=== PATIENT | female | born 1980 | race Caucasian/White ===

== ENCOUNTER 2024-08-24 13:47 | Emergency (ER) | payer BC ==
[~2024-08-24] VITALS: Ht 165.1 cm; Wt 60.5 kg
--- OUTSIDE RECORDS SUMMARY | 2024-08-24 13:54 | XMS ---
PreManage Notification: ESTHER CHING Security Conversion Developer Events No recent Security Events currently on file CRITERIA MET - [facility] - 2 Visits in 30 Days CARE PROVIDERS Paty Perkins Nurse Practitioner: Family Current PHONE: Unknown Nguyễn has no Care Guidelines for this patient. Ranjeet VISIT COUNT (12 MO.) [address] [place] [address] TOTAL 2 NOTE: Visits indicate total known visits. ED/UCC VISIT TRACKING (12 MO.) 08/24/2024 13:[address] [facility] OR TYPE: Emergency COMPLAINT: - ABDOMINAL PAIN 08/20/2024 20:03 [facility] OR TYPE: Emergency DIAGNOSES: - Epigastric pain - abd pain back pain INPATIENT VISIT TRACKING (12 MO.) No inpatient visits to display in this time frame [email or web address]
[2024-08-24 14:21] LABS: BILIRUBIN, URINE NEGATIVE (negative); BLOOD/HGB, URINE SMALL (Negative); KETONE, URINE NEGATIVE (Negative); LEUK ESTERASE, URINE NEGATIVE (negative); NITRITE, URINE NEGATIVE (negative)
[2024-08-24 14:27] LABS: BACTERIA, URINE NONE SEEN /hpf (negative); CASTS, URINE NONE SEEN \\lpf; COLLECTION TYPE, URINE CLEAN CATCH; CRYSTALS, URINE NONE SEEN (0-1+); EPITHELIAL CELLS, URINE NONE SEEN /lpf (0-1+); RED BLOOD CELLS, URINE 0-1 /hpf (0-5); REFLEX CULTURE, URINE No (No); WHITE BLOOD CELLS, URINE 0-1 /HPF (0-5)
[2024-08-24] MEDS ORDERED: VENTOLIN HFA18 GM INH (15:02)
[2024-08-24] MEDS ORDERED: ALLEGRA ALLERGY60 MG PO (15:02)
[2024-08-24] MEDS ORDERED: ondansetron HCL 4 MG/2 ML VIAL IV ONE (15:15)
[2024-08-24] MEDS ORDERED: LIDOCAINE & ANTACID 35 ML BTL PO ONE (15:30)
[2024-08-24 16:51] VITALS: BP 114/74
[2024-08-24] MEDS ORDERED: LIDOCAINE HCL100 ML MT (17:02)
== END 2024-08-24 17:14 | disposition home or self-care (01) ==
LOC: ED 13:47
PROVIDERS: Emergency Medicine
DX: R10.11 Right upper quadrant pain (principal); G43.909 Migraine, unspecified, not intractable, without status migrainosus; J45.909 Unspecified asthma, uncomplicated; Z88.8 Allergy status to other drugs, medicaments and biological substances; Z79.899 Other long term (current) drug therapy
CPT/HCPCS: 76705; 80053; 81001; 83690; 84703; 85025; 99284-25

== ENCOUNTER 2025-04-27 05:52 | Day surgery (SDC) | payer BC ==
[2025-04-19 15:37] VITALS: BP 129/87
[~2025-04-27] VITALS: Ht 167.6 cm; Wt 63.6 kg
--- NOTE | ~2025-04-27 | OR ---
[facility] [address], [place] [address] Draft DATE OF OPERATION: 04/27/2025 SURGEON: Da Marin DO PREOPERATIVE DIAGNOSES: 1. Abnormal uterine bleeding. 2. Asherman syndrome. 3. Labial defect. POSTOPERATIVE DIAGNOSES: 1. Abnormal uterine bleeding. 2. Asherman syndrome. 3. Labial defect. PROCEDURES PERFORMED: 1. Total laparoscopic hysterectomy. 2. Bilateral salpingectomy. 3. Cystoscopy. 4. Revision of labial defect. ESTIMATED BLOOD LOSS: 50 mL. COMPLICATIONS: None. DRAINS: Pacheco to gravity. SPECIMENS: Uterus, portion of bilateral fallopian tubes and cervix. COMPLICATIONS: None. INDICATIONS: Ms. Ching is a very pleasant 45-year-old G4, P3 female, who presents for total laparoscopic hysterectomy, bilateral salpingectomy, cystoscopy, and revision of labial defect. Briefly, patient with a history of worsening abnormal uterine bleeding. Hysteroscopy for malpositioned embedded IUD demonstrated Asherman syndrome with uterine PATIENT NAME: ESTHER CHING OPERATIVE REPORT DATE OF : [birth year] REPORT #: [id number] PHYSICIAN: DA MARIN (MYA) PCP: NO PRIMARY CARE PHYSICIAN REPORT IS CONFIDENTIAL AND NOT TO BE RELEASED WITHOUT AUTHORIZATION [facility] [address] [place], [place] [address] Draft synechiae. She desired definitive treatment with hysterectomy. Of note, patient also had a right labial defect. This was approximately 3 to 4 cm across the diameter in the right labia minora from a failed obstetric pair in the distant past. This created significant pain particularly with intimacy. The patient desired revision. Risks, benefits, and alternatives were discussed in detail with the patient. The patient understands and wished to proceed with the procedure. DESCRIPTION OF PROCEDURE: The patient was taken the OR. Time-out was performed to confirm correct patient and correct procedure. General anesthesia was adequately established. The patient was prepped and draped in the dorsal lithotomy position with feet in Yellofin stirrups. ICPs were on and running. The patient received Ancef 2 g preoperatively and no heparin was indicated. A Pacheco catheter was inserted. Weighted speculum was placed in the vagina and the anterior lip of the cervix was grasped with an Allis clamp. The cervix was gently dilated using Hegar dilators to a #7. A VCare uterine manipulator was very carefully placed to the fundus without difficulty while being mindful of patient's previously seen Asherman syndrome on hysteroscopy. Once appropriate placement was appreciated, the surgeon's gloves were changed. Attention was turned to the abdomen. Just inferior to the umbilicus, the skin was infiltrated with 0.25% Marcaine with epinephrine and incision was made. Incision was carried down to the fascia. The fascia was nicked with Metzenbaum scissors and fascial incision was extended bilaterally with Metzenbaum scissors. Stay sutures were placed in the superior and inferior edge of the fascial incision. The peritoneum was entered bluntly and no adhesions were palpable. A Betty operative port was placed without difficulty and pneumoperitoneum was established without difficulty. Survey of the abdomen and pelvis was performed demonstrating normal uterus, ovaries, history of partial bilateral salpingectomy/fimbriectomy. Normal liver and gallbladder. A 5 mm assist port was placed in the left lower quadrant under direct visualization. An 8 mm expanding port was placed in the right lower quadrant under direct visualization without complication. Attention was turned to the hysterectomy. The remaining portion of left fallopian tube was grasped with a blunt grasper and the fallopian tube was divided along the mesosalpinx and amputated at the cornu with the LigaSure device. Portion of the tube was sent to Pathology for further evaluation. The process was repeated on the right without difficulty. Attention was turned to the left side where the utero-ovarian ligament was identified, fulgurated and divided with excellent hemostasis with the LigaSure device. The round ligament was fulgurated and divided with excellent hemostasis as well. The leaves of the broad ligament were divided with the anterior leaf divided from the midportion of the round to the edge of the vaginal cup anteriorly following the anterior edge of the vaginal cup. Some dense adhesions from prior were noted but bladder flap was able to be created without difficulty or complication. The posterior leaf of the broad ligament was divided from the midportion around to the uterosacral ligament across the posterior edge of the vaginal cup to the right uterosacral ligament. The left uterine vessels were PATIENT NAME: ESTHER CHING OPERATIVE REPORT DATE OF : [birth year] REPORT #: [id number] PHYSICIAN: DA MARIN (MYA) DO PCP: NO PRIMARY CARE PHYSICIAN REPORT IS CONFIDENTIAL AND NOT TO BE RELEASED WITHOUT AUTHORIZATION [facility] [address] [place] [id number] Draft identified, fulgurated and divided with the LigaSure device with excellent hemostasis appreciated. The process was repeated on the right with fulguration and division of the right utero-ovarian ligament, round ligament and leaves of the broad ligament. Again, some adhesions anteriorly were noted, but these were able to be brought down with the LigaSure device and the bladder was eventually to be mobilized well below the vaginal cup. After fulguration division of the uterine vessels on the right colpotomy was performed using Sonicision device with excellent hemostasis. The uterus and cervix were delivered through the vagina and sent to the Pathology for further evaluation. A wet lap sponge was placed in a glove, which was then placed into the vagina to maintain pneumoperitoneum. The colpotomy was irrigated and made hemostatic with judicious use of bipolar cautery. Colpotomy was then repaired using V-Loc suture with an Endostitch device with careful attention to incorporate the uterosacral ligaments bilaterally as well as to incorporate the vaginal epithelium with each bite. Excellent hemostasis and apical support was appreciated at the end of this. The pelvis was again irrigated and found to be hemostatic. Pneumoperitoneum was reduced. Trocars removed and infraumbilical fascia was reapproximated using 0 Vicryl in a running nonlocked manner. Stay sutures of 0 Vicryl were then plicated to reinforce this incision. Skin was reapproximated using 3-0 Vicryl Rapide. Attention was then turned to cystoscopy. The Pacheco catheter was removed and a 70-degree cystoscope was placed in the urethral meatus and advanced under direct visualization of the bladder. Normal bladder dome and bilateral ureteral jets was appreciated. The bladder was drained. Pacheco catheter was reinserted and attention was then turned to repair of the vaginal defect. The vulvar defect was cut to release the defect. The edges of the defect were then clamped with a Jelly clamp and the epithelialized edge of the defect was excised with a surgical scalpel. skin edges were identified and the anterior portion of the skin was then repaired using 3-0 Vicryl and interrupted sutures. The posterior edges of the defect were then brought together with 3-0 Vicryl. Excellent reapproximation with cosmesis and hemostasis appreciated. The patient was then taken to the PACU in good and stable condition. Sponge, needle, and instrument counts were correct x2 at the end of procedure. Da Marin DO JDW/MODL /[id number] PATIENT NAME: ESTHER CHING OPERATIVE REPORT DATE OF : 84 REPORT #: [id number] PHYSICIAN: DA MARINMYA) PCP: NO PRIMARY CARE PHYSICIAN REPORT IS CONFIDENTIAL AND NOT TO BE RELEASED WITHOUT AUTHORIZATION [facility] [address] [place] [address] [address] [place], [place] [address] Draft Copies: ~ PATIENT NAME: ESTHER CHING OPERATIVE REPORT DATE OF : 84 REPORT #: [id number] PHYSICIAN: DA MARIN (MYA) DO PCP: NO PRIMARY CARE PHYSICIAN REPORT IS CONFIDENTIAL AND NOT TO BE RELEASED WITHOUT AUTHORIZATION
[~2025-04-27 05:52] MED LIST: ALLEGRA ALLERGY60 MG PO; LACTATED RINGER'S 1,000 ML IV SCH; LIDOCAINE HCL100 ML MT; VENTOLIN HFA18 GM INH
[2025-04-27 06:11] VITALS: BP 124/76
[2025-04-27 06:57] VITALS: BP 120/76
[2025-04-27] MEDS ORDERED: fentaNYL citrate 100 MCG/2 ML VIAL ONE (06:59)
[2025-04-27] MEDS ORDERED: MIDAZOLAM HCL 2 MG/2 ML VIAL ONE (06:59)
[2025-04-27] MEDS ORDERED: LIDOCAINE HCL 1% 5 ML SDV INJ ONE (07:00)
[2025-04-27] MEDS ORDERED: VANCOMYCIN HCL 1 GM in DEXTROSE 5% 250 ML IV SCH (07:00)
[2025-04-27] MEDS ORDERED: GENTAMICIN SULFATE IV SCH (07:00)
[2025-04-27] MEDS ORDERED: IBLOOD GLUCOSE TEST STRIP 1 EA TEST VI PRN ×2 (07:00→10:30)
[2025-04-27] MEDS ORDERED: DEXTROSE 5% IV SCH (07:00)
[2025-04-27] MEDS ORDERED: KETOROLAC TROMETHAMINE 30 MG/ML VIAL ONE (07:01)
[2025-04-27] MEDS ORDERED: DEXAMETHASONE SOD PHOS 4 MG/ML VIAL ONE (07:01)
[2025-04-27] MEDS ORDERED: ROCURONIUM BROMIDE 50 MG/5 ML SYR ONE (07:02)
[2025-04-27] MEDS ORDERED: LIDOCAINE HCL 2% 5 ML SDV ONE (07:02)
[2025-04-27] MEDS ORDERED: LIDOCAINE HCL 1% 30 ML SDV ONE (07:02)
--- NOTE | 2025-04-27 07:14 | NUR ---
0650 PT USED CALL LIGHT TO ALERT RN THAT PT SCALP FEELS ITCHY. PT REPORTS THAT PRIOR ANTIBIOITCS CAUSED PT TO BECOME RED WITH NO OTHER SYMPTOMS. PT HAS NO REDNESS AT THIS TIME. PT STATES THAT ITCH IN SCALP IS GONE NOW. PT WILL ALERT RN IF ANY OTHER SYMPTOMS ARISE. INFUSION OF VANCO CONTINUES TO RUN PER EMAR. 0657 COLLECTION TECHNICIAN OSCAR COMES OUT OF PT ROOM AND INFORMS THIS RN THAT PT IS VERY RED ALL OVER. 0658 RN IN ROOM, PT IS RED AROUND NECK AND FACE, AND BACK. PT REPORTS NO SHORTNESS OF BREATH OR ANY OTHER SYMPTOMS. INFUSION STOPPED AT THIS TIME. 0704 PT REDNESS HAS STOPPED AT THIS TIME. INFUSION RESTARTED AT 125MLS AN HOUR. 0708 SPOKE WITH ABOUT REACTION AND COLLECTION TECHNICIAN. COLLECTION TECHNICIAN VERBAL ORDER FOR 25MG OF BENADRYL IV ONCE NOW TO BE GIVEN. VANCO INFUSION TO BE STOPPED, 128 MLS OF VANCO HAS BEEN INFUSED. GENT TO BE STARTED AT 0720 PER OSCAR COLLECTION TECHNICIAN. 25 MG OF BENEDRYL GIVEN IV NOW. SEE ANESTHSIA BLUE SHEET.
[2025-04-27] MEDS ORDERED: FLUORESCEIN SODIUM 500 MG/5 ML ML ONE (08:14)
[2025-04-27] MEDS ORDERED: SODIUM CHLORIDE 0.9% 20 ML IV ONE (08:14)
[2025-04-27] MEDS ORDERED: SUGAMMADEX SODIUM 200 MG/2 ML ML ONE (08:17)
[2025-04-27] MEDS ORDERED: BUPIVACAINE HCL 0.5% 30 ML VIAL ONE (08:25)
[2025-04-27] MEDS ORDERED: LACTATED RINGER'S 1,000 ML IV ONE (09:28)
[2025-04-27] MEDS ORDERED: ACETAMINOPHEN 1,000 MG/100 ML VIAL ONE (10:13)
--- NOTE | 2025-04-27 10:28 | NUR ---
04/27/25 Jie8 Tata Bell LE 1015: PT ARRIVES TO PACU. SHE IS NON REACTIVE TO STIMULI. LE 1026: LYNN MACHUCA HUNG BY KIT. ICE PACK IS PLACED ON LABIA PER DR. OTERO REQUEST/ORDERS.
[2025-04-27] MEDS ORDERED: OXYCODONE/APAP 5/325 TAB PO PRN (10:30)
[2025-04-27] MEDS ORDERED: NALOXONE HCL 0.4 MG SYR IV PRN ×2 (10:30)
[2025-04-27] MEDS ORDERED: FAMOTIDINE 20 MG/ 2 ML VIAL IV PRN (10:30)
[2025-04-27] MEDS ORDERED: PROCHLORPERAZINE EDISYLATE 10 MG/2 ML VIAL IV PRN (10:30)
[2025-04-27] MEDS ORDERED: fentaNYL citrate 50 MCG/ML SDV IV PRN (10:30)
[2025-04-27] MEDS ORDERED: SIMETHICONE 80 MG CHEW PO PRN (10:30)
[2025-04-27] MEDS ORDERED: METOCLOPRAMIDE HCL 10 MG/2 ML SDV IV PRN (10:30)
[2025-04-27] MEDS ORDERED: MORPHINE SULFATE 10 MG/ML VIAL IV PRN (10:30)
[2025-04-27] MEDS ORDERED: MAGNESIUM HYDROXIDE/AL HYDROX 30 ML CUP PO PRN (10:30)
[2025-04-27 10:58] VITALS: BP 128/73
--- NOTE | 2025-04-27 11:22 | NUR ---
1055 PT ARRIVED TO DAY SURGERY RM TX VIA STREACHER FROM PACU. REPORT TAKEN FROM WILEY Montiel RN. PT REPORTS NO NAUSEA AT THIS TIME. PT STATES THAT SHE FEELS LIKE SHE REALLY NEEDS TO PEE AND ITS CAUSING HER 9/10 PAIN. EDUCATED PT ABOUT CATHETER AND THAT PT CAN VOID AT ANY TIME. PT VOIDS AND A TOTAL OF 200 MLS OF YELLOW URINE IN OWEN CATH BAG. PT REPORTS NO RELEIF FROM PAIN. TELEGRAPH MECHANIC STATES TAHT CATHETER CAN BE REMOVED AT 11:15. PT HAS AT BEDSIDE. PT RESTING WITH EYES CLOSED, CALL LIGHT WITHIN REACH. 1100 HEATING PAD APPLIED TO PT BLADDER AREA WHERE PT STATES THE PAINFUL CRAMPING IS. 1115 OWEN CATH BALOON DEFLATED, 10CC OF WATER REMOVED FROM BALOON. OWEN CATH THEN REMOVED. GLADYS PAD IN PLACE. PT REPORTS NO DECREASE IN PAIN AT THIS TIME. DISCUSSION OF PAIN MEDICATION IF PAIN DOES NOT DECREASE SOON. JELLO AND WATER AT BEDSIDE.
--- NOTE | 2025-04-27 11:31 | NUR ---
1125 CHECKED IN WITH PT. PT STILL REPORTS 9/10 CRAMPING PAIN IN LOWER ABDOMEN. DISCUSSED THIS PAIN WITH PT IN REGARDS TO PROCEDURE. DISCUSSED PAIN MEDICINE AND A GAS RELEIF MEDICATION. PT UNDERSTANDING. PT WILL ATTEMPT TO EAT SOME JELLO AND DRINK SOME WATER BEFORE PAIN MEDCIATION GIVEN TO ASSSIT WITH AVOIDING NAUSEA.
--- NOTE | 2025-04-27 11:46 | NUR ---
1145 PAIN MEDICATION GIVEN PER EMAR. GAS RELEIF MEDICATION GIVEN PER EMAR. PT REPORTING 7/10 PAIN AT THIS TIME. DULL AND CRAMPING IN LOWER ABDOMEN.
[2025-04-27 11:48] VITALS: BP 130/83
--- NOTE | 2025-04-27 11:53 | NUR ---
1148 HOURLY ROUNDING DONE. PT REPORTING 7/10 DULL ACHING PAIN IN LOWER ABDOMEN. INCSION SITES CHECKED. PT REPORTS NO NAUSEA AT THIS TIME. PT HAS BEEN ABLE TO TOLERATE PO FLUIDS AND JELLO. PT AT BEDSIDE. PT HAS CALL LIGHT WITHIN REACH. BED LOW AND LOCKED. PT RESTING WITH EYES CLOSED IN BED. VITALS TAKEN.
[2025-04-27 12:48] VITALS: BP 126/81
--- NOTE | 2025-04-27 12:56 | NUR ---
1249 HOURLY ROUNDING DONE WITH PT. VITALS TAKEN. IV ASSESSED. PT SIPPING ON WATER. PT REPORTS TOELRABLE 4/10 PAIN AND NO NAUSEA AT THIS TIME. PT HAS CALL LIGHT WITHIN REACH. DISCUSSED PLAN TO GET PT UP TO PEE SOON PT REPORTS URGE TO URINATE BUT HAS HAD URGE SINCE CATHETER WAS IN. PT GOING TO DRINK CUP OF WATER AND THEN PT AND RN WILL GET PT UP TO BATHROOM TO ATTEMPT TO VOID.
[2025-04-27] MEDS ORDERED: SIMETHICONE 80 MG CHEW PO SCH (13:00)
--- NOTE | 2025-04-27 13:03 | NUR ---
1302 PT USED CALL LIGHT TO ALERT RN THAT PT NEEDS TO VOID. PT ABLE TO STAND AND AMBULATE TO BATHROOM WITH STEADY GAIT. PT IN BATHROOM ATTEMPTING TO VOID. PT IN ROOM AT BEDSIDE. 1305 PT ABLE TO VOID 400 MLS OF OSCAR URINE. PT ABLE TO AMBULATE BACK TO BED WITH STEADY GAIT.
--- NOTE | 2025-04-27 13:32 | NUR ---
1310 DISCHARGE INFORMATION GONE OVER WITH PT AND . NO QUESTIONS AT THIST ENOC. BACITRACIN GIVEN TO PT PER DR WARDS VERBAL ORDERS FOR PT TO PLACE ON LABIAL REPAIR TO KEEP MOIST TO NOT LET IT ADHEAR TO GLADYS PAD. 1315 IV REMOVED FOR DISCHARGE. PT GETTING DRESSED WITH PT HUSBANDS ASSISTANCE. 1325 PT DISCHARGED FROM DAY SURGERY VIA WHEELCHAIR TO THE FRONT OF THE HOSPITAL TO PT'S 'S CAR. PT SPOUSE HAS DISCHARGE INFORMATION IN HAND.
[2025-04-27] MEDS ORDERED: SEVOFLURANE 250 ML BTL INH ONE (14:57)
--- NOTE | 2025-04-29 15:31 | PATH ---
[facility] [address] [place], [place] [address] Signed SPECIMEN(S): A UTERUS, CERVIX, PARTIAL PIECES OF TUBES SPECIMEN SOURCE: A. UTERUS, CERVIX, PARTIAL PIECES OF TUBES CLINICAL HISTORY: AUB; Asherman syndrome; labial defect. FINAL PATHOLOGIC DIAGNOSIS: A. Uterus cervix and bilateral fallopian tubes, hysterectomy and bilateral salpingectomy: - Cervix: - Benign squamous epithelium and endocervix, negative for dysplasia. - Endomyometrium: - Adenomyosis. - Fragments of benign secretory type endometrium, negative for atypia. - Bilateral fallopian tubes: - Benign fimbriae and cross sections of fallopian tubes with hydrosalpinx. DDF MICROSCOPIC EXAMINATION: Histologic sections of all submitted blocks are examined by light microscopy. These findings, together with the gross examination, support the pathologic diagnosis. GROSS DESCRIPTION: The specimen, labeled and designated "Luiz Dexter, " and designated on the requisition "cervix; uterus, right and left partial pieces of fallopian tube," is received in formalin and consists of 175 gram uterus and cervix with segments of fallopian tube. The uterus is 5.5 x 5.1 x 10.6 violaceous and smooth with areas of red punctate discoloration. The serosal surface is violaceous and smooth with one area of red discoloration that is 2.5 cm in greatest dimension. The ectocervical mucosa is violaceous and smooth. Serial sectioning of the cervix fails to demonstrate any gross abnormalities. The triangular endometrial cavity is lined by a pink smooth and focally congested endometrium that has an average thickness of 0.2 cm. Present near one cornu is a pink-red soft loosely attached polypoid portion of endometrium that is 1.5 cm in greatest dimension. Sectioning through the uterus reveals a pink moderately trabeculated myometrium PATIENT NAME: ESTHER CHING PATHOLOGY DATE OF : 84 REPORT #: [id number] PHYSICIAN: MELINDA PATHOLOGY PCP: NO PRIMARY CARE PHYSICIAN REPORT IS CONFIDENTIAL AND NOT TO BE RELEASED WITHOUT AUTHORIZATION [facility] [address] [place], [place] [address] Signed with one lower uterine segment defect that is 1.2 cm in greatest dimension. The first fallopian tube segment is 3.6 x 0.7 cm, with no fimbriae. The serosa is violaceous and smooth. Cut sections reveal a 0.3 lumen. The second fallopian tube segment is 2.2 x 0.9 cm, with no fimbriae. The serosa is violaceous and smooth. Cut sections reveal a 0.4 lumen. Internal Communications Specialist sections are submitted in nine cassettes. Cassette Summary: (A1) first fallopian tube segment, entirely submitted (A2) second fallopian tube segment, entirely submitted (A3) 12-3 o'clock cervix (A4) 3-6 o'clock cervix (A5) 6-9 o'clock cervix (A6) 9-12 o'clock cervix (A7) polypoid portion of endometrium, entirely submitted (A8) uterine wall (A9) lower uterine segment and additional sections of serosa FB (under the direct supervision of a pathologist) The Gross Description was prepared using a voice recognition system. The report was reviewed for accuracy; however, sound-alike word errors, addition and/or deletions may occur. If there is any question about this report, please contact Client Services. ADDITIONAL NOTES: Immunohistochemical and/or in situ hybridization studies if performed in this case included appropriate positive controls that reacted as expected. This test was developed and its performance characteristics determined by [facility]. It has not been cleared or approved by the U.S. Food and Drug Administration. The FDA has determined that such clearance or approval is not necessary. This test is used for clinical purposes. It should not be regarded as investigational or for research. [facility] is certified under the Clinical Laboratory Improvement Amendments of 1988 (CLIA) as qualified to perform high complexity clinical laboratory testing. PERFORMING LABORATORY: Technical component was performed by [facility], [address] [place] [id number] (CLIA# [id number]). Professional interpretation was performed by [facility] [address] [facility] [id number] PATIENT NAME: ESTHER CHING PATHOLOGY DATE OF : 84 REPORT #: [id number] PHYSICIAN: MELINDA LUZ PCP: NO PRIMARY CARE PHYSICIAN REPORT IS CONFIDENTIAL AND NOT TO BE RELEASED WITHOUT AUTHORIZATION [facility] [address] [place], [place] [address] Signed Diagnostician: Eric Frank DO Pathologist Electronically Signed 04/29/2025 Copies: ~ PATIENT NAME: ESTHER CHING PATHOLOGY DATE OF : 84 REPORT #: [id number] PHYSICIAN: MELINDA PATHOLOGY PCP: NO PRIMARY CARE PHYSICIAN REPORT IS CONFIDENTIAL AND NOT TO BE RELEASED WITHOUT AUTHORIZATION
== END 2025-04-27 13:25 | disposition home or self-care (01) ==
LOC: DS 05:52 → OPS 05:52 → DS 07:30 → OPS 13:25
PROVIDERS: ATTEND Obstetrics & Gynecology
PROC: 0HB9XZZ Excision of Perineum Skin, External Approach (ICD-10-PCS; 2025-04-27)
PROC: 0UT94ZZ Resection of Uterus, Percutaneous Endoscopic Approach (ICD-10-PCS; principal; 2025-04-27 07:30)
PROC: 0UT74ZZ Resection of Bilateral Fallopian Tubes, Percutaneous Endoscopic Approach (ICD-10-PCS; 2025-04-27 07:30)
DX: N80.03 Adenomyosis of the uterus (principal); N70.11 Chronic salpingitis; N85.6 Intrauterine synechiae; N90.89 Other specified noninflammatory disorders of vulva and perineum; J45.909 Unspecified asthma, uncomplicated; Z79.899 Other long term (current) drug therapy; Z88.0 Allergy status to penicillin; Z88.1 Allergy status to other antibiotic agents
CPT/HCPCS: 00840; J0131; J1100; J1200; J1580; J1885; J2003; J2250; J2405; J2704; J3010; J3370; J3490; J7060; J7121